=== PATIENT | female | born 2000 | race Caucasian/White ===

== ENCOUNTER 2023-07-02 08:32 | Outpatient (CLI) | payer BC, SELFPAY ==
--- NOTE | ~2023-07-02 | CT_ITS ---
EXAMINATION: CT abdomen pelvis wo con DATE: 07/02/2023 08:51 INDICATION: Lower abdominal pain TECHNIQUE: Computed tomography (CT) of the abdomen and pelvis was performed without intravenous contr ast. The dose-length product (DLP) was 345.39 mGy-cm. Automated exposure control and iterative recons truction technique were employed. COMPARISON: None FINDINGS: The lung bases are clear. The heart size is normal. The liver, spleen, pancreas, gallbladde r, and adrenal glands are normal. There are punctate nonobstructing stones of the right kidney. The l eft kidney is unremarkable. No pathologically enlarged abdominal or pelvic lymph nodes are identified . No free intraperitoneal gas or evidence of bowel obstruction. The appendix is normal. There is a ti ny focus of gas in the urinary bladder of unclear origin. IMPRESSION: 1. No CT correlate for the patient's symptoms. 2. Punctate nonobstructing right nephrolithiasis. 3. Tiny focus of gas in the urinary bladder of unclear origin. Reviewed, dictated and finalized at location A.
== END 2023-07-02 08:33 ==
LOC: MICIMG 08:37
PROVIDERS: PCP Nurse Practitioner Family; Visit Provider Nurse Practitioner Family
DX: R10.30 Lower abdominal pain, unspecified (principal); N20.0 Calculus of kidney
CPT/HCPCS: 74176